=== PATIENT | female | born 1995 | race Two or more races ===

== ENCOUNTER 2022-02-26 14:56 | Outpatient (CLI) | payer OTHER | END 2022-02-26 15:15 | disposition home or self-care (01) | LOC: PPH VACUNA 14:56 | PROVIDERS: ATTEND Emergency Medicine Pediatric Emergency Medicine | DX: Z23 Encounter for immunization (principal) ==

== ENCOUNTER 2022-03-15 10:32 | Outpatient (CLI) | payer OTHER | END 2022-03-15 10:38 | disposition home or self-care (01) | LOC: LAB 10:32 | PROVIDERS: ATTEND Preventive Medicine Occupational Medicine | DX: U07.1 COVID-19 (principal) ==

== ENCOUNTER 2022-05-14 08:00 | Outpatient (CLI) | payer OTHER | END 2022-05-14 08:05 | disposition home or self-care (01) | LOC: PPH VACUNA 08:00 | PROVIDERS: ATTEND Emergency Medicine Pediatric Emergency Medicine | DX: Z23 Encounter for immunization (principal) ==

== ENCOUNTER 2022-10-22 15:22 | Outpatient (CLI) | payer OTHER | END 2022-10-22 15:26 | disposition home or self-care (01) | LOC: RAD 15:22 | DX: M99.01 Segmental and somatic dysfunction of cervical region (principal); M99.02 Segmental and somatic dysfunction of thoracic region; M99.03 Segmental and somatic dysfunction of lumbar region; M99.04 Segmental and somatic dysfunction of sacral region; M99.05 Segmental and somatic dysfunction of pelvic region ==

== ENCOUNTER 2023-01-13 15:00 | Outpatient (CLI) | payer OTHER | END 2023-01-13 15:06 | disposition home or self-care (01) | LOC: SONOGRAMA 15:00 | PROVIDERS: ATTEND Radiology Diagnostic Radiology | DX: R10.2 Pelvic and perineal pain (principal) ==

== ENCOUNTER 2023-01-26 18:52 | Emergency (ER) | payer OTHER ==
[~2023-01-26] VITALS: Ht 167.6 cm; Wt 107.0 kg
[2023-01-26] MEDS ORDERED: COZAAR25 MG (19:06)
== END 2023-01-26 20:15 | disposition home or self-care (01) ==
LOC: ER 18:52
DX: M25.511 Pain in right shoulder (principal)

== ENCOUNTER 2023-01-28 08:23 | Outpatient (CLI) | payer OTHER ==
[~2023-01-28 08:23] MED LIST: COZAAR25 MG
== END 2023-01-28 08:29 | disposition home or self-care (01) ==
LOC: SONOGRAMA 08:23
PROVIDERS: ATTEND General Practice
DX: M25.511 Pain in right shoulder (principal)

== ENCOUNTER 2023-02-17 09:39 | Outpatient (CLI) | payer OTHER | END 2023-02-17 09:47 | disposition home or self-care (01) | LOC: LAB 09:39 | DX: Z02.1 Encounter for pre-employment examination (principal) ==

== ENCOUNTER 2023-06-14 02:00 | Outpatient (CLI) | payer OTHER | END 2023-06-14 02:10 | disposition home or self-care (01) | LOC: PPH VACUNA 02:00 | PROVIDERS: ATTEND Emergency Medicine Pediatric Emergency Medicine | DX: Z23 Encounter for immunization (principal) | CPT/HCPCS: 90686; G0008 ==

== ENCOUNTER 2023-07-05 18:30 | Emergency (ER) | payer OTHER ==
[~2023-07-05] VITALS: Ht 162.6 cm; Wt 86.2 kg
[2023-07-05] MEDS ORDERED: NORFLEX100MG PO (21:30)
[2023-07-05] MEDS ORDERED: DICLOFENAC SODI75 MG PO (21:30)
== END 2023-07-05 21:38 | disposition home or self-care (01) ==
LOC: ER 18:30
DX: S49.91XA Unspecified injury of right shoulder and upper arm, initial encounter (principal); M75.41 Impingement syndrome of right shoulder; I10 Essential (primary) hypertension; Z91.013 Allergy to seafood

== ENCOUNTER 2023-08-23 15:48 | Emergency (ER) | payer OTHER ==
[~2023-08-23] VITALS: Ht 160 cm; Wt 104.3 kg
[~2023-08-23 15:48] MED LIST changes: +DICLOFENAC SODI75 MG PO; +NORFLEX100MG PO
[2023-08-23] MEDS ORDERED: GABAPENTIN100 MG PO (17:33)
[2023-08-23] MEDS ORDERED: MEDROLPACK PO (17:34)
== END 2023-08-23 18:17 | disposition home or self-care (01) ==
LOC: ER 15:48
DX: G57.90 Unspecified mononeuropathy of unspecified lower limb (principal); M79.604 Pain in right leg; I10 Essential (primary) hypertension; Z91.013 Allergy to seafood

== ENCOUNTER 2023-09-07 15:27 | Outpatient (CLI) | payer OTHER ==
[~2023-09-07 15:27] MED LIST changes: +GABAPENTIN100 MG PO; +MEDROLPACK PO
== END 2023-09-07 15:28 | disposition home or self-care (01) ==
LOC: RAD 15:27
DX: M99.01 Segmental and somatic dysfunction of cervical region (principal); M99.02 Segmental and somatic dysfunction of thoracic region; M99.03 Segmental and somatic dysfunction of lumbar region; M99.04 Segmental and somatic dysfunction of sacral region; M99.05 Segmental and somatic dysfunction of pelvic region